=== PATIENT | female | born 1965 | race Caucasian/White ===

== ENCOUNTER → 2017-05-02 | Outpatient (CLI) | payer BC | END | disposition home or self-care (01) | LOC: C.PAPS 11:32 | PROVIDERS: ATTEND Obstetrics & Gynecology | DX: Z01.411 Encounter for gynecological examination (general) (routine) with abnormal findings (principal); R87.610 Atypical squamous cells of undetermined significance on cytologic smear of cervix (ASC-US) ==

== ENCOUNTER → 2017-05-07 | Outpatient (CLI) | payer BC ==
--- NOTE | 2017-05-08 14:36 | MAMMOGRAPHY REPORT ---
BILATERAL DIGITAL SCREENING MAMMOGRAM TOMOSYNTHESIS WITH CAD: 05/07/2017 CLINICAL HISTORY: Routine screening. TECHNIQUE: Breast tomosynthesis in addition to standard 2D mammography was performed. Current study was also evaluated with a Computer Aided Detection (CAD) system. COMPARISON: Comparison is made to exams dated: 05/03/2016 mammogram, 04/30/2015 mammogram, 03/20/2014 ma mmogram, 03/03/2013 mammogram, 01/01/2012 mammogram, and 01/12/2011 mammogram - [facility]. BREAST COMPOSITION: The tissue of both breasts is almost entirely fatty. FINDINGS: There are stable benign-appearing coarse calcifications in the right breast. No suspicious mass, architectural distortion or cluster of suspicious microcalcifications is seen. IMPRESSION: ACR BI-RADS CATEGORY 1: NEGATIVE There is no mammographic evidence of malignancy. A 1 year screening mammogram is recommended. The pa tient will receive written notification of the results. Approximately 10% of breast cancers are not detected with mammography. A negative mammographic report should not delay biopsy if a clinically suggestive mass is present. Brittney Brown M.D. ay/:05/07/2017 15:52:56 Learning Strategist: Ramona DUNCAN(Christopher)(Far[place]), [facility] letter sent: Normal 1/2 BI-RADS Code: ACR BI-RADS Category 1: Negative
== END | disposition home or self-care (01) ==
LOC: C.MAMM 09:08
PROVIDERS: ATTEND Obstetrics & Gynecology
DX: Z12.31 Encounter for screening mammogram for malignant neoplasm of breast (principal)

== ENCOUNTER → 2018-05-06 | Outpatient (CLI) | payer OTHER | END | disposition home or self-care (01) | LOC: C.PAPS 16:26 | PROVIDERS: ATTEND Obstetrics & Gynecology | DX: Z01.411 Encounter for gynecological examination (general) (routine) with abnormal findings (principal); Z11.51 Encounter for screening for human papillomavirus (HPV); R87.610 Atypical squamous cells of undetermined significance on cytologic smear of cervix (ASC-US) ==

== ENCOUNTER → 2018-05-09 | Outpatient (CLI) | payer OTHER ==
--- NOTE | 2018-05-09 15:42 | MAMMOGRAPHY REPORT ---
BILATERAL DIGITAL SCREENING MAMMOGRAM TOMOSYNTHESIS WITH CAD: 05/09/2018 CLINICAL HISTORY: Routine screening. TECHNIQUE: The study was acquired using full field digital technology and interpreted from soft copy. Breast tomosynthesis in addition to standard 2D mammography was performed. Current study was also ev aluated with a Computer Aided Detection (CAD) system. COMPARISON: Comparison is made to exams dated: 05/07/2017 mammogram, 05/03/2016 mammogram, 04/30/2015 ma mmogram, 03/20/2014 mammogram, 03/03/2013 mammogram, and 01/01/2012 mammogram - [facility]. BREAST COMPOSITION: The tissue of both breasts is almost entirely fatty. FINDINGS: No suspicious masses, calcifications, or areas of architectural distortion are noted in either breast . There has been no significant interval change compared to prior exams. IMPRESSION: ACR BI-RADS CATEGORY 1: NEGATIVE There is no mammographic evidence of malignancy. A 1 year screening mammogram is recommended.( 019) The patient will receive written notification of the results. Some breast cancers are not detected with mammography. A negative mammographic report should not dany y biopsy if a clinically suggestive mass is present. Sandra Abarca M.D. ah/:05/09/2018 14:50:16 Manager Environmental Health And Safety: RT Felix(Christopher)(M), [facility] letter sent: Normal 1/2 BI-RADS Code: ACR BI-RADS Category 1: Negative
== END | disposition home or self-care (01) ==
LOC: C.MAMM 08:51
PROVIDERS: ATTEND Obstetrics & Gynecology
DX: Z12.31 Encounter for screening mammogram for malignant neoplasm of breast (principal)

== ENCOUNTER 2023-03-26 18:08 | Observation (INO) ==
--- NOTE | 2023-03-26 18:20 | ED Triage Note ---
Date of Service March 26, 2023 History of Present Illness This patient was briefly evaluated while in triage. An abbreviated physical exam was performed. This patient is a 57-year-old Female who presents to the ED for evaluation of several complaints. Has had 2.5 weeks with dizziness--felt like was going to black out. Did stop at [facility], and was dx with Vertigo. Meclizine may have helped. Followed up again with [facility] for a PCP visit. Started on 6 day steroid taper that finished 2 days ago. Today with headache and vague facial numbness that was fleeting. Physical Exam Limited Triage Exam: VITALS: Vitals are noted on the nurse's note and reviewed by myself. Vital signs stable. GENERAL: Well-developed, well-nourished, white female, who is in no acute distress and resting comfortably. Patient is cooperative with the examination. HEART: Regular rate and rhythm without murmurs gallops or rubs. LUNGS: Clear to auscultation bilaterally without wheezes, rales or rhonchi. No retractions or accessory muscle use. NEURO: Patient was alert and oriented to person place and time. CN II through XII grossly intact. Initial orders for labs and / or imaging were placed and patient was placed in the waiting area until a bed is available. Please see further documentation for the full ED course.
[2023-03-26 19:07] LABS: Basophils # (auto) 0.06 K/uL (0-0.2); Basophils % (auto) 0.6 %; Eosinophils # (auto) 0.25 K/uL (0-0.50); Eosinophils % (auto) 2.4 %; Hematocrit (blood only) 44.8 % (37.0-47.0); Hemoglobin 15.5 g/dl (12.0-16.0); Immature Granulocytes # (auto) 0.07 K/uL (0.01-0.20); Immature Granulocytes % (auto) 0.7 %; Lymphocytes # (auto) 1.94 K/uL (1.2-3.4); Lymphocytes % (auto) 18.9 %; Mean Corpuscular Hgb Conc 34.6 g/dL (32.0-36.0); Mean Corpuscular Volume 86.8 fL (80.0-100.0); Mean Platelet Volume 9.6 fL (9.4-12.4); Monocytes # (auto) 0.66 K/uL (0.11-0.59); Monocytes % (auto) 6.4 %; Neutrophils # (auto) 7.29 K/uL (1.40-6.50); Platelet Count 315 K/uL (130-400); RDW Coefficient of Variation 12.6 % (11.5-14.5); RDW Standard Deviation 39.7 fL (36.4-46.3); Red Blood Count 5.16 M/uL (4.20-5.40); White Blood Count 10.27 K/ul (4.8-10.8)
--- NOTE | 2023-03-26 19:09 | Emergency Department Note ---
Impression & Plan Facial numbness, Left arm numbness, Aneurysm of carotid artery, Dizziness ED Provider Note NAME: BROOKS Khan LISA AGE: 57 SEX: F : 1965 ARRIVES VIA: Walk-In INFORMANT: [Patient] ED PROVIDER(S): [Sung Estrada MD] CHIEF COMPLAINT: Dizziness HISTORY OF PRESENT ILLNESS: The patient is a 57-year-old female who states that 3 weeks ago, she had a bout of dizziness and lightheadedness while driving. She thought she might pass out but did not. She states that she went then to urgent care and they told her that she had some fluid behind her ears. She was given meclizine which she thinks may have helped a bit. Patient saw her doctor's office a week ago for similar symptoms and was given a steroid taper. She just finished her steroid taper. She also is using a nasal spray. Patient states that today, about 4 PM, 3 hours ago, she suddenly had bilateral facial numbness and a little tingling in her left arm. Left arm tingling only lasted a few seconds. The facial numbness lasted about 45 minutes. The patient was slightly dizzy at the time and had a mild headache. There was no leg weakness, no speech issue, no trouble with concentration. No chest pain. Patient has no history of TIA or stroke. PMHx/PSHx: See Below SOCIAL HISTORY: See Below. PHYSICAL EXAM: GENERAL: Patient is in no acute distress. HEENT: No acute trauma, normocephalic atraumatic, mucous membranes moist, no nasal congestion. NECK: No stridor, no adenopathy, no meningismus, trachea is midline. LUNGS: Clear to auscultation bilaterally, no wheeze, no rhonchi, breath sounds equal. HEART: Without murmurs gallops or rubs, regular rate and rhythm. ABDOMEN: Soft, nontender, bowel sounds positive, no peritonitis. EXTREMITIES: No cyanosis or edema, full range of motion of all the joints without pain or difficulty, no signs for acute trauma. NEUROLOGIC: Oriented x 3, no acute motor or sensory deficits, no focal weakness. No speech slur or facial droop, no extremity drift. No cerebellar dysfunction. Excellent historian. SKIN: No rash, no jaundice, no diaphoresis. DIFFERENTIAL DIAGNOSIS: TIA, CVA, vertigo, dysrhythmia, electrolyte imbalance, renal failure, anemia, UTI, among others. EMERGENCY DEPARTMENT COURSE/PROCEDURES: Prior/Outside records reviewed: None. ECG per my interpretation: Indication was possible stroke. The ECG shows a normal sinus rhythm with a rate of 71. There is no ST elevation, no PVCs. The QTc is 373. Continuous Cardiac Monitoring per my interpretation: An order was placed for continuous cardiac monitoring. The monitor shows a rate of 95 with normal sinus rhythm. Critical Care Note: I have personally spent 48 minutes of critical care time in the direct management of this patient. This includes bedside care, interpretation of diagnostic studies, and testing, discussion with consultants, patient, and family members, and other required patient management activities. This 48 minutes is in excess of all separately billable procedures. MEDICAL DECISION MAKING: There is no leukocytosis or concerning anemia. There is a normal platelet count. No coagulopathy. No renal failure or significant electrolyte abnormality. No concerning liver enzyme elevation. The TSH was somewhat low however, the T4 was normal. ECG showed a normal sinus rhythm, no ischemia or dysrhythmia. Cardiac enzyme testing x1 was not consistent with acute cardiac injury. Urinalysis did not show findings of infection. Anaplasmosis and Babesia smears were negative. Lyme disease testing was negative. COVID test returned negative. Brain CT showed no acute bleed or mass effect. CT angio of the head and neck were performed. There was a potential 1.3 cm left carotid aneurysm, no stenosis or clot seen in the arteries of the head or neck. On exam, there were no focal neurologic findings. The patient did not require any medications while here in the ED, she was resting comfortably. Her symptoms had resolved. Given the facial numbness, given the left arm tingling, given the dizziness, I was concerned for the possibility of TIA or small stroke not seen on CT. I do think further testing/neurologic work-up is warranted. With regard to the potential left carotid artery aneurysm, this is likely an in cidental finding. She has no pain in her neck, there was no mention of arterial rupture. No stenosis or clot identified at this region. I did speak with case management, I spoke with the patient, the on-call hospitalist was consulted. DISPOSITION: Patient presentation and findings warrant a hospital stay. Past Med/Surg History Medical History Anxiety Depression GERD (gastroesophageal reflux disease) controlled History of endometriosis History of restrictive lung disease Pt denies (? haziness on report imaging r/t work exposure) Hypothyroidism Surgical History History of arthroscopic surgery of elbow Right History of carpal tunnel release Right History of hip surgery Left hip arthroscopy, labral repair (10/06/19): Grade view 2, MAC#3, ETT 7, atraumatic DL x1 at [facility]. No issues noted per post-op anesthesia progress note. Hx of foot surgery Right small toe S/P colonoscopy S/P cystoscopy S/P laparoscopy Family History Mother Malignant neoplasm of cervix Colon cancer Denies family history of Ovarian cancer Breast cancer Social History Smoking Status: Never smoker Second Hand Exposure: No; Do You Dip or Chew Tobacco: No; Hx Alcohol Use: No Hx Substance Use: No Preferred Language: Lao Communication Ability: Effective Warp Dresser Required: No Beliefs That Will Affect Care: None marital status: Current Living Situation: Spouse Other Information That Helps Us Care for You: No Feels Safe at Home: Yes Safety Concerns: Feels Safe At This Time Seatbelt Use: always Sunscreen Use: Yes Assistive Devices: None Allergies Allergies Allergy/AdvReac Type Severity Reaction Status Date / Time No Known Drug Allergies Allergy Unknown Verified 03/26/23 22:40 Home Meds Home Medications Medication Instructions Recorded Confirmed fluoxetine 20 mg capsule (Prozac) 20 mg PO QAM 09/12/19 03/26/23 omeprazole magnesium 20 mg 40 mg PO QAM 09/12/19 03/26/23 tablet,delayed release (Prilosec OTC) apple cider vinegar 500 mg tablet 500 mg PO QAM 05/18/22 03/26/23 cholecalciferol (vitamin D3) 50 50 mcg PO QAM 05/18/22 03/26/23 mcg (2,000 unit) tablet (Vitamin D3) cinnamon bark 500 mg capsule 500 mg PO QAM 05/18/22 03/26/23 (Cinnamon) cyanocobalamin (vitamin B-12) 100 100 mcg PO QAM 05/18/22 03/26/23 mcg tablet (Vitamin B-12) fexofenadine 60 mg tablet 60 mg PO BID PRN Allergy Symptoms 05/18/22 03/26/23 calcium carbonate 600 mg calcium 600 mg PO DAILY 03/26/23 03/26/23 (1,500 mg) tablet fluticasone propionate 50 2 spray intranasal DAILY 03/26/23 03/26/23 mcg/actuation nasal spray,suspension (Flonase Allergy Relief) levonorgestrel 21 mcg/24 hours (8 0 mcg intrauterine CONT 03/26/23 03/26/23 yrs) 52 mg intrauterine device (Mirena) levothyroxine 175 mcg tablet 175 mcg PO DAILYBB 03/26/23 03/26/23 Previous Rx's Medication Instructions Recorded spironolactone 50 mg tablet 50 mg PO DAILY #90 tabs 11/03/22 (Aldactone) Results & Data (ED) Vital Signs Vital Signs - 24 hr 03/26/23 18:17 03/26/23 19:32 03/26/23 21:06 Temperature 36.6 C Temperature Source Temporal Artery Scan Pulse Rate 96 H 77 Pulse Rate [Apical] 77 Respiratory Rate 20 16 Respiratory Effort / Characteristics Non-Labored Respiratory Depth Normal Blood Pressure 130/78 Blood Pressure [Right Arm] 123/73 Blood Pressure Mean 95 Blood Pressure Mean [Right Arm] 89 Pulse Oximetry 97 96 Oxygen Delivery Method Room Air Room Air Sepsis Recent Fever Within 48 Hours No Sepsis New/Unexplained Change in Mental Status No Sepsis Action Taken by Nursing No Action Required Home Medications Current Medication List: was personally reviewed by me Laboratory Data Attestation: I reviewed the patient's lab results. 03/26/23 18:32 03/26/23 18:32 Lab Results 03/26/23 03/26/23 03/26/23 Range/Units 18:32 18:32 18:32 WBC 10.27 (4.8-10.8) K/ul RBC 5.16 (4.20-5.40) M/uL Hgb 15.5 (12.0-16.0) g/dl Hct 44.8 (37.0-47.0) % MCV 86.8 (80.0-100.0) fL MCH 30.0 (25.0-34.0) pg MCHC 34.6 (32.0-36.0) g/dL RDW Std Deviation 39.7 (36.4-46.3) fL RDW Coeff of Angel 12.6 (11.5-14.5) % Plt Count 315 (130-400) K/uL MPV 9.6 (9.4-12.4) fL Immature Gran % (Auto) 0.7 % Neut % (Auto) 71.0 % Lymph % (Auto) 18.9 % [place] % (Auto) 6.4 % Eos % (Auto) 2.4 % Baso % (Auto) 0.6 % Neut # (Auto) 7.29 H (1.40-6.50) K/uL Lymph # (Auto) 1.94 (1.2-3.4) K/uL [place] # (Auto) 0.66 H (0.11-0.59) K/uL Eos # (Auto) 0.25 (0-0.50) K/uL Baso # (Auto) 0.06 (0-0.2) K/uL Immature Gran # (Auto) 0.07 (0.01-0.20) K/uL PT 10.8 (9.0-12.0) Seconds INR 1.0 (0.9-1.1) APTT 25.0 (21.0-31.0) Seconds PTT Ratio 0.9 Sodium 137 (136-145) mmol/L Potassium 4.1 (3.5-5.1) mmol/L Chloride 107 (98-107) mmol/L Carbon Dioxide 22 (21-32) mmol/L Anion Gap 8 (3-11) BUN 16 (6-23) mg/dl Creatinine 0.78 (0.6-1.2) mg/dl Est Cr Clr Drug Dosing Not Reportable Est GFR ( Amer) 99.2 ml/min Est GFR (Non-Af Amer) 85.6 ml/min BUN/Creatinine Ratio 20.5 H (10-20) Glucose 118 H (70-99(Fasting)) mg/dl Calcium 9.1 (8.6-10.3) mg/dl Magnesium 1.9 (1.7-2.4) mg/dl Total Bilirubin 0.3 (0.2-1.0) mg/dl AST 17 (13-39) U/L ALT 19 (7-52) U/L Alkaline Phosphatase 98 (34-104) U/L Troponin I High Sens 2.8 (0-14) pg/ml Total Protein 7.0 (6.0-8.3) gm/dl Albumin 4.3 (3.4-5.0) gm/dl Globulin 2.7 (2.5-4.0) gm/dl Albumin/Globulin Ratio 1.6 (0.9-2) TSH (0.300-4.500) uIu/ml Free T4 (0.61-1.60) ng/dl Urine Color Urine Appearance (Clear) Urine pH (4.5-7.5) Ur Specific [place] (1.000-1.030) Urine Protein (Negative) Urine Glucose (UA) (Negative) Urine Ketones (Negative) Urine Blood (Negative) Urine Nitrite (Negative) Urine Bilirubin (Negative) Urine Urobilinogen (Negative) Ur Leukocyte Esterase (Negative) Anaplasma Smear See Comment Lyme Disease IgG Ab (Negative) Lyme Disease IgM Ab (Negative) SARS-CoV-2, RNA, NAAT (NEGATIVE) 03/26/23 03/26/23 03/26/23 Range/Units 18:32 18:32 18:58 WBC (4.8-10.8) K/ul RBC (4.20-5.40) M/uL Hgb (12.0-16.0) g/dl Hct (37.0-47.0) % MCV (80.0-100.0) fL MCH (25.0-34.0) pg MCHC (32.0-36.0) g/dL RDW Std Deviation (36.4-46.3) fL RDW Coeff of Angel (11.5-14.5) % Plt Count (130-400) K/uL MPV (9.4-12.4) fL Immature Gran % (Auto) % Neut % (Auto) % Lymph % (Auto) % [place] % (Auto) % Eos % (Auto) % Baso % (Auto) % Neut # (Auto) (1.40-6.50) K/uL Lymph # (Auto) (1.2-3.4) K/uL [place] # (Auto) (0.11-0.59) K/uL Eos # (Auto) (0-0.50) K/uL Baso # (Auto) (0-0.2) K/uL Immature Gran # (Auto) (0.01-0.20) K/uL PT (9.0-12.0) Seconds INR (0.9-1.1) APTT (21.0-31.0) Seconds PTT Ratio Sodium (136-145) mmol/L Potassium (3.5-5.1) mmol/L Chloride (98-107) mmol/L Carbon Dioxide (21-32) mmol/L Anion Gap (3-11) BUN (6-23) mg/dl Creatinine (0.6-1.2) mg/dl Est Cr Clr Drug Dosing Est GFR ( Amer) ml/min Est GFR (Non-Af Amer) ml/min BUN/Creatinine Ratio (10-20) Glucose (70-99(Fasting)) mg/dl Calcium (8.6-10.3) mg/dl Magnesium (1.7-2.4) mg/dl Total Bilirubin (0.2-1.0) mg/dl AST (13-39) U/L ALT (7-52) U/L Alkaline Phosphatase (34-104) U/L Troponin I High Sens (0-14) pg/ml Total Protein (6.0-8.3) gm/dl Albumin (3.4-5.0) gm/dl Globulin (2.5-4.0) gm/dl Albumin/Globulin Ratio (0.9-2) TSH 0.111 L (0.300-4.500) uIu/ml Free T4 1.22 (0.61-1.60) ng/dl Urine Color Yellow Urine Appearance Clear (Clear) Urine pH 5.5 (4.5-7.5) Ur Specific [place] 1.005 (1.000-1.030) Urine Protein Negative (Negative) Urine Glucose (UA) Negative (Negative) Urine Ketones Negative (Negative) Urine Blood Negative (Negative) Urine Nitrite Negative (Negative) Urine Bilirubin Negative (Negative) Urine Urobilinogen Negative (Negative) Ur Leukocyte Esterase Negative (Negative) Anaplasma Smear Lyme Disease IgG Ab Negative (Negative) Lyme Disease IgM Ab Negative (Negative) SARS-CoV-2, RNA, NAAT (NEGATIVE) 03/26/23 Range/Units 21:40 WBC (4.8-10.8) K/ul RBC (4.20-5.40) M/uL Hgb (12.0-16.0) g/dl Hct (37.0-47.0) % MCV (80.0-100.0) fL MCH (25.0-34.0) pg MCHC (32.0-36.0) g/dL RDW Std Deviation (36.4-46.3) fL RDW Coeff of Angel (11.5-14.5) % Plt Count (130-400) K/uL MPV (9.4-12.4) fL Immature Gran % (Auto) % Neut % (Auto) % Lymph % (Auto) % [place] % (Auto) % Eos % (Auto) % Baso % (Auto) % Neut # (Auto) (1.40-6.50) K/uL Lymph # (Auto) (1.2-3.4) K/uL [place] # (Auto) (0.11-0.59) K/uL Eos # (Auto) (0-0.50) K/uL Baso # (Auto) (0-0.2) K/uL Immature Gran # (Auto) (0.01-0.20) K/uL PT (9.0-12.0) Seconds INR (0.9-1.1) APTT (21.0-31.0) Seconds PTT Ratio Sodium (136-145) mmol/L Potassium (3.5-5.1) mmol/L Chloride (98-107) mmol/L Carbon Dioxide (21-32) mmol/L Anion Gap (3-11) BUN (6-23) mg/dl Creatinine (0.6-1.2) mg/dl Est Cr Clr Drug Dosing Est GFR ( Amer) ml/min Est GFR (Non-Af Amer) ml/min BUN/Creatinine Ratio (10-20) Glucose (70-99(Fasting)) mg/dl Calcium (8.6-10.3) mg/dl Magnesium (1.7-2.4) mg/dl Total Bilirubin (0.2-1.0) mg/dl AST (13-39) U/L ALT (7-52) U/L Alkaline Phosphatase (34-104) U/L Troponin I High Sens (0-14) pg/ml Total Protein (6.0-8.3) gm/dl Albumin (3.4-5.0) gm/dl Globulin (2.5-4.0) gm/dl Albumin/Globulin Ratio (0.9-2) TSH (0.300-4.500) uIu/ml Free T4 (0.61-1.60) ng/dl Urine Color Urine Appearance (Clear) Urine pH (4.5-7.5) Ur Specific [place] (1.000-1.030) Urine Protein (Negative) Urine Glucose (UA) (Negative) Urine Ketones (Negative) Urine Blood (Negative) Urine Nitrite (Negative) Urine Bilirubin (Negative) Urine Urobilinogen (Negative) Ur Leukocyte Esterase (Negative) Anaplasma Smear Lyme Disease IgG Ab (Negative) Lyme Disease IgM Ab (Negative) SARS-CoV-2, RNA, NAAT NEGATIVE (NEGATIVE) Administered Medications Discontinued Medications Ioversol (Optiray 320 125ml) 120 ml IV ONCE ONE Stop: 03/26/23 20:47 Last Admin: 03/26/23 20:46 Dose: 120 ml Documented By: UTE Lorazepam (Lorazepam 2 Mg/1 Ml Vial) 0.5 mg IV NOW STA Stop: 03/26/23 23:08 Last Admin: 03/26/23 23:14 Dose: 0.5 mg Documented By: PHYLLIS Imaging Data Radiologist's Impression: Head CT 03/26/23 18:20 Exam(s): CT HEAD Without Contrast EXAM: CT Head Without Intravenous Contrast CLINICAL HISTORY: Reason for exam: vague neuro sx, headache. TECHNIQUE: Axial computed tomography images of the head/brain without intravenous contrast. CTDI is 38.03 mGy and DLP is 546.36 mGy-cm. Automated exposure control was utilized for the study. A dose lowering technique was utilized adhering to the principles of ALARA. COMPARISON: No relevant prior studies available. FINDINGS: Brain: Minimal periventricular white matter changes, likely related to microangiopathy. No hemorrhage. Ventricles: Unremarkable. No ventriculomegaly. Bones/joints: Unremarkable. No acute fracture. Soft tissues: Unremarkable. Sinuses: Unremarkable as visualized. No acute sinusitis. Mastoid air cells: Unremarkable as visualized. No mastoid effusion. IMPRESSION: Minimal periventricular white matter changes, likely related to microangiopathy. Electronically signed by: Nitin Hayden M.D. 03/26/23 21:07 PM Head CTA 03/26/23 18:20 Exam(s): CTA HEAD With Contrast IV Amt: 120 ml optiray 320 EXAM: CT Angiography Head With Intravenous Contrast CLINICAL HISTORY: Reason for exam: vague neuro sx, headache. TECHNIQUE: Axial computed tomographic angiography images of the head with intravenous contrast. CTDI is 38.03 mGy and DLP is 546.36 mGy-cm. Automated exposure control was utilized for the study. A dose lowering technique was utilized adhering to the principles of ALARA. MIP reconstructed images were created and reviewed. CONTRAST: Patient received 120 ml optiray 320 of IV contrast COMPARISON: No relevant prior studies available. FINDINGS: Right internal carotid artery: No acute findings. Intracranial segment is patent with no significant stenosis. No aneurysm. Right anterior cerebral artery: Unremarkable. No occlusion or significant stenosis. No aneurysm. Right middle cerebral artery: Unremarkable. No occlusion or significant stenosis. No aneurysm. Right posterior cerebral artery: Unremarkable. No occlusion or significant stenosis. No aneurysm. Right vertebral artery: Unremarkable as visualized. Left internal carotid artery: Possible 1.3 cm saccular aneurysm arising off the clinoid portion of the left internal carotid artery best seen on series 5 image 100. Intracranial segment is patent with no significant stenosis. Left anterior cerebral artery: Unremarkable. No occlusion or significant stenosis. No aneurysm. Left middle cerebral artery: Unremarkable. No occlusion or significant stenosis. No aneurysm. Left posterior cerebral artery: Unremarkable. No occlusion or significant stenosis. No aneurysm. Left vertebral artery: Unremarkable as visualized. Basilar artery: Unremarkable. No occlusion or significant stenosis. No aneurysm. IMPRESSION: Possible 1.3 cm saccular aneurysm arising off the clinoid portion of the left internal carotid artery. Electronically signed by: Nitin Hayden M.D. 03/26/23 21:17 PM Neck CTA 03/26/23 18:20 Exam(s): CTA NECK With Contrast IV Amt: 120 ml optiray 320 EXAM: CT Angiography Neck With Intravenous Contrast CLINICAL HISTORY: Reason for exam: vague neuro sx, headache. TECHNIQUE: Routine carotid CT angiography protocol was performed with intravenous contrast. NASCET criteria using the distal ICAs for comparison were used for evaluation of stenoses. CTDI is 12.13 mGy and DLP is 452.33 mGy-cm. Automated exposure control was utilized for the study. A dose lowering technique was utilized adhering to the principles of ALARA. MIP reconstructed images were created and reviewed. CONTRAST: Patient received 120 ml optiray 320 of IV contrast COMPARISON: None. FINDINGS: VASCULATURE: Right common carotid artery: Unremarkable. No occlusion or significant stenosis. No dissection. Right internal carotid artery: Unremarkable. Extracranial segment is patent with no occlusion or significant stenosis. No dissection. Right external carotid artery: Unremarkable. No occlusion. Right vertebral artery: Unremarkable. No occlusion or significant stenosis. No dissection. Left common carotid artery: Unremarkable. No occlusion or significant stenosis. No dissection. Left internal carotid artery: Unremarkable. Extracranial segment is patent with no occlusion or significant stenosis. No dissection. Left external carotid artery: Unremarkable. No occlusion. Left vertebral artery: Unremarkable. No occlusion or significant stenosis. No dissection. NECK: Bones/joints: Unremarkable. Soft tissues: Unremarkable. Lung apices: Clear. CAROTID STENOSIS REFERENCE USING NASCET CRITERIA: % ICA stenosis = (1 - narrowest ICA diameter/diameter of distal cervical ICA) x 100. Mild - <50% stenosis. Moderate - 50-69% stenosis. Severe - 70-94% stenosis. Near occlusion - 95-99% stenosis. Occluded - 100% stenosis. IMPRESSION: Negative CTA neck. Electronically signed by: Nitin Hayden M.D. 03/26/23 21:10 PM Brain MRI 03/26/23 22:10 Exam(s): MRI HEAD Without Contrast EXAM: MR Head Without Intravenous Contrast CLINICAL HISTORY: Reason for exam: facial numbness aneurysm. TECHNIQUE: Magnetic resonance images of the head/brain without intravenous contrast in multiple planes. COMPARISON: Head CT of 03/26/2023 FINDINGS: Brain: Mild periventricular white matter changes, likely related to chronic microangiopathy. No hemorrhage. No acute infarct. Ventricles: Unremarkable. No ventriculomegaly. Bones/joints: Unremarkable. Sinuses: Unremarkable as visualized. No acute sinusitis. Mastoid air cells: Unremarkable as visualized. No mastoid effusion. Orbits: Unremarkable as visualized. IMPRESSION: Mild periventricular white matter changes, likely related to chronic microangiopathy. Electronically signed by: Nitin Hayden M.D. 03/27/23 01:17 AM Head MRA 03/26/23 22:10 Exam(s): MRA HEAD Without Contrast EXAM: MR Angiography Head Without Intravenous Contrast CLINICAL HISTORY: Reason for exam: facial numbness aneurysm. TECHNIQUE: Magnetic resonance angiography images of the head without intravenous contrast. 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 This is favored to be artifactual as this measured 4.4 mm on prior CTA which is more accurate. Intracranial segment is patent with no significant stenosis. Right anterior cerebral artery: Unremarkable. No occlusion or significant stenosis. No aneurysm. Right middle cerebral artery: Unremarkable. No occlusion or significant stenosis. No aneurysm. Right posterior cerebral artery: Unremarkable. No occlusion or significant stenosis. No aneurysm. Right vertebral artery: Unremarkable as visualized. Left internal carotid artery: Small saccular aneurysm seen on prior CTA within the distal left internal carotid artery is not visualized on the MRA. Intracranial segment is patent with no significant stenosis. Left anterior cerebral artery: Unremarkable. No occlusion or significant stenosis. No aneurysm. Left middle cerebral artery: Unremarkable. No occlusion or significant stenosis. No aneurysm. Left posterior cerebral artery: Unremarkable. No occlusion or significant stenosis. No aneurysm. Left vertebral artery: Unremarkable as visualized. Basilar artery: Unremarkable. No occlusion or significant stenosis. No aneurysm. IMPRESSION: Small saccular aneurysm seen on prior CTA within the distal left internal carotid artery is not visualized on the MRA. Electronically signed by: Nitin Hayden M.D. 03/27/23 01:01 AM Discharge Plan Visit Data Chief Complaint: Dizziness Stated Complaint: DIZZINESS FOR 3 WKS, NUMBNESS IN FACE ED Provider: Sung Estrada Discharge Problem: Facial numbness, Left arm numbness, Aneurysm of carotid artery, Dizziness Patient Disposition: Admitted As Inpatient Condition: Fair Discharge Instructions Interventions: ED Discharge Assessment Last Done: 03/26/23 23:47
[2023-03-26 19:23] LABS: Alanine Aminotransferase 19 U/L (7-52); Albumin Globulin Ratio 1.6 (0.9-2); Albumin Level 4.3 gm/dl (3.4-5.0); Alkaline Phosphatase 98 U/L (34-104); Anion Gap 8 (3-11); Aspartate Aminotransferase 17 U/L (13-39); BUN Creatinine Ratio 20.5 (10-20); Bilirubin,Total 0.3 mg/dl (0.2-1.0); Blood Urea Nitrogen 16 mg/dl (6-23); Calcium 9.1 mg/dl (8.6-10.3); Carbon Dioxide 22 mmol/L (21-32); Chloride 107 mmol/L (98-107); Est GFR (African American) 99.2 ml/min; Est GFR (Non-African American) 85.6 ml/min; Globulin 2.7 gm/dl (2.5-4.0); Glucose 118 mg/dl (70-99(Fasting)); Magnesium 1.9 mg/dl (1.7-2.4); Potassium 4.1 mmol/L (3.5-5.1); Sodium 137 mmol/L (136-145)
[2023-03-26 19:30] LABS: Troponin I High Sensitivity 2.8 pg/ml (0-14)
[2023-03-26 19:34] LABS: Appearance Urine Clear (Clear); Bilirubin Urine Negative (Negative); Blood Urine Negative (Negative); Color Urine Yellow; Glucose Urine UA Negative (Negative); Ketones Urine Negative (Negative); Leukocyte Esterase Urine Negative (Negative); Nitrite Urine Negative (Negative); Protein Urine Negative (Negative); Specific Gravity Urine 1.005 (1.000-1.030); Urobilinogen Urine Negative (Negative); pH Urine 5.5 (4.5-7.5)
[2023-03-26 19:41] LABS: Partial Thromboplastin Ratio 0.9; Prothrombin Time 10.8 Seconds (9.0-12.0)
[2023-03-26 19:51] LABS: Lyme Ab IgG w/WB Rflx Negative (Negative); Lyme Ab IgM w/WB Rflx Negative (Negative)
[2023-03-26 19:58] LABS: Thyroid Stimulating Hormone 0.111 uIu/ml (0.300-4.500)
[2023-03-26 20:42] LABS: T4 Free Thyroxine 1.22 ng/dl (0.61-1.60)
[2023-03-26] MEDS ORDERED: OPTIRAY 320 125ml IV ONE (20:46)
--- NOTE | 2023-03-26 21:08 | CT Scan Report ---
Exam(s): CT HEAD Without Contrast EXAM: CT Head Without Intravenous Contrast CLINICAL HISTORY: Reason for exam: vague neuro sx, headache. TECHNIQUE: Axial computed tomography images of the head/brain without intravenous contrast. CTDI is 38.03 mGy and DLP is 546.36 mGy-cm. Automated exposure control was utilized for the study. A dose lowering technique was utilized adhering to the principles of ALARA. COMPARISON: No relevant prior studies available. FINDINGS: Brain: Minimal periventricular white matter changes, likely related to microangiopathy. No hemorrhage. Ventricles: Unremarkable. No ventriculomegaly. Bones/joints: Unremarkable. No acute fracture. Soft tissues: Unremarkable. Sinuses: Unremarkable as visualized. No acute sinusitis. Mastoid air cells: Unremarkable as visualized. No mastoid effusion. IMPRESSION: Minimal periventricular white matter changes, likely related to microangiopathy. Electronically signed by: Nitin Hayden M.D. 03/26/23 21:07 PM
--- NOTE | 2023-03-26 21:11 | CT Scan Report ---
Exam(s): CTA NECK With Contrast IV Amt: 120 ml optiray 320 EXAM: CT Angiography Neck With Intravenous Contrast CLINICAL HISTORY: Reason for exam: vague neuro sx, headache. TECHNIQUE: Routine carotid CT angiography protocol was performed with intravenous contrast. NASCET criteria using the distal ICAs for comparison were used for evaluation of stenoses. CTDI is 12.13 mGy and DLP is 452.33 mGy-cm. Automated exposure control was utilized for the study. A dose lowering technique was utilized adhering to the principles of ALARA. MIP reconstructed images were created and reviewed. CONTRAST: Patient received 120 ml optiray 320 of IV contrast COMPARISON: None. FINDINGS: VASCULATURE: Right common carotid artery: Unremarkable. No occlusion or significant stenosis. No dissection. Right internal carotid artery: Unremarkable. Extracranial segment is patent with no occlusion or significant stenosis. No dissection. Right external carotid artery: Unremarkable. No occlusion. Right vertebral artery: Unremarkable. No occlusion or significant stenosis. No dissection. Left common carotid artery: Unremarkable. No occlusion or significant stenosis. No dissection. Left internal carotid artery: Unremarkable. Extracranial segment is patent with no occlusion or significant stenosis. No dissection. Left external carotid artery: Unremarkable. No occlusion. Left vertebral artery: Unremarkable. No occlusion or significant stenosis. No dissection. NECK: Bones/joints: Unremarkable. Soft tissues: Unremarkable. Lung apices: Clear. CAROTID STENOSIS REFERENCE USING NASCET CRITERIA: % ICA stenosis = (1 - narrowest ICA diameter/diameter of distal cervical ICA) x 100. Mild - <50% stenosis. Moderate - 50-69% stenosis. Severe - 70-94% stenosis. Near occlusion - 95-99% stenosis. Occluded - 100% stenosis. IMPRESSION: Negative CTA neck. Electronically signed by: Nitin Hayden M.D. 03/26/23 21:10 PM
--- NOTE | 2023-03-26 21:18 | CT Scan Report ---
Exam(s): CTA HEAD With Contrast IV Amt: 120 ml optiray 320 EXAM: CT Angiography Head With Intravenous Contrast CLINICAL HISTORY: Reason for exam: vague neuro sx, headache. TECHNIQUE: Axial computed tomographic angiography images of the head with intravenous contrast. CTDI is 38.03 mGy and DLP is 546.36 mGy-cm. Automated exposure control was utilized for the study. A dose lowering technique was utilized adhering to the principles of ALARA. MIP reconstructed images were created and reviewed. CONTRAST: Patient received 120 ml optiray 320 of IV contrast COMPARISON: No relevant prior studies available. FINDINGS: Right internal carotid artery: No acute findings. Intracranial segment is patent with no significant stenosis. No aneurysm. Right anterior cerebral artery: Unremarkable. No occlusion or significant stenosis. No aneurysm. Right middle cerebral artery: Unremarkable. No occlusion or significant stenosis. No aneurysm. Right posterior cerebral artery: Unremarkable. No occlusion or significant stenosis. No aneurysm. Right vertebral artery: Unremarkable as visualized. Left internal carotid artery: Possible 1.3 cm saccular aneurysm arising off the clinoid portion of the left internal carotid artery best seen on series 5 image 100. Intracranial segment is patent with no significant stenosis. Left anterior cerebral artery: Unremarkable. No occlusion or significant stenosis. No aneurysm. Left middle cerebral artery: Unremarkable. No occlusion or significant stenosis. No aneurysm. Left posterior cerebral artery: Unremarkable. No occlusion or significant stenosis. No aneurysm. Left vertebral artery: Unremarkable as visualized. Basilar artery: Unremarkable. No occlusion or significant stenosis. No aneurysm. IMPRESSION: Possible 1.3 cm saccular aneurysm arising off the clinoid portion of the left internal carotid artery. Electronically signed by: Nitin Hayden M.D. 03/26/23 21:17 PM
--- NOTE | 2023-03-26 22:16 | History & Physical Report ---
Date of Service March 26, 2023 Assessment & Plan (1) Facial numbness: Plan: 57yo Female with PMH hypothyroidism, GERD, depression here for dizziness facial numbness. Facial Numbness -BP wnl, symptoms resolved at this time, normal neuro exam -CTA head neck:Possible 1.3 cm saccular aneurysm arising off the clinoid portion of the left internal carotid artery. -lyme negative anaplasmosis pending -ordered MRA head MRI brain no contrast -admit to med tele -consult placed to neurology GERD -continue protonix Hypothyroidism -continue levothyroxine Depression -continue fluoxetine *spironolactone placed on hold FENa: regular Code Status: Full DVT PPX: ambulatory Dispo: med/tele Janis Wesley D.O. PGY 3, FCM (2) Dizziness: (3) Aneurysm: (4) Hypothyroidism: (5) Depression: (6) GERD (gastroesophageal reflux disease): History of Present Illness Chief Complaint: Facial Numbness Primary Care Provider: Alden Rayo MD 57yo Female with PMH hypothyroidism, GERD, depression here for dizziness facial numbness. Patient states she's been having ongoing dizziness with movement ongoing past 3 weeks, ears felt heavy, PCP had noted fluid in her ears tried meclizine steroids vestibular therapy which only partially helped however dizziness would persist. Today at 4pm she noted sudden onset numbness on bilateral face both cheeks and chin sparing her forehead. described brief tingling along her left arm that quickly resolved. Possible sluggishness. Denies any change in hearing vision speech breathing facial expression weakness. Cannot recall any inciting event. States the numbness quickly resolved, has some lingering rubberiness on her lips. This has never happened before. Denies fever nausea vomitting SOB. Patient has a family history heart disease grandma age 91, cancer mother age 72. Allergies Allergy/AdvReac Type Severity Reaction Status Date / Time No Known Drug Allergies Allergy Unknown Verified 03/26/23 22:40 Home Medications Medication Instructions Recorded Confirmed Type fluoxetine 20 mg capsule (Prozac) 20 mg PO QAM 09/12/19 03/26/23 History omeprazole magnesium 20 mg 40 mg PO QAM 09/12/19 03/26/23 History tablet,delayed release (Prilosec OTC) apple cider vinegar 500 mg tablet 500 mg PO QAM 05/18/22 03/26/23 History cholecalciferol (vitamin D3) 50 50 mcg PO QAM 05/18/22 03/26/23 History mcg (2,000 unit) tablet (Vitamin D3) cinnamon bark 500 mg capsule 500 mg PO QAM 05/18/22 03/26/23 History (Cinnamon) cyanocobalamin (vitamin B-12) 100 100 mcg PO QAM 05/18/22 03/26/23 History mcg tablet (Vitamin B-12) fexofenadine 60 mg tablet 60 mg PO BID PRN Allergy Symptoms 05/18/22 03/26/23 History spironolactone 50 mg tablet 50 mg PO DAILY #90 tabs 11/03/22 03/26/23 Rx (Aldactone) calcium carbonate 600 mg calcium 600 mg PO DAILY 03/26/23 03/26/23 History (1,500 mg) tablet fluticasone propionate 50 2 spray intranasal DAILY 03/26/23 03/26/23 History mcg/actuation nasal spray,suspension (Flonase Allergy Relief) levonorgestrel 21 mcg/24 hours (8 0 mcg intrauterine CONT 03/26/23 03/26/23 History yrs) 52 mg intrauterine device (Mirena) aspirin 81 mg capsule 81 mg PO DAILY #30 caps 03/27/23 Rx levothyroxine 150 mcg tablet 150 mcg PO DAILYBB #30 tabs 03/27/23 Rx (Synthroid) Past Med/Surg History Medical History Anxiety Depression GERD (gastroesophageal reflux disease) controlled History of endometriosis History of restrictive lung disease Pt denies (? haziness on report imaging r/t work exposure) Hypothyroidism Surgical History History of arthroscopic surgery of elbow Right History of carpal tunnel release Right History of hip surgery Left hip arthroscopy, labral repair (10/06/19): Grade view 2, MAC#3, ETT 7, atraumatic DL x1 at [facility]. No issues noted per post-op anesthesia progress note. Hx of foot surgery Right small toe S/P colonoscopy S/P cystoscopy S/P laparoscopy Family History Mother Malignant neoplasm of cervix Colon cancer Denies family history of Ovarian cancer Breast cancer Social History Smoking Status: Never smoker Second Hand Exposure: No; Do You Dip or Chew Tobacco: No; Hx Alcohol Use: No Hx Substance Use: No Preferred Language: Upper Sorbian Communication Ability: Effective Supervisor Type Disk Quality Control Required: No Beliefs That Will Affect Care: None marital status: Current Living Situation: Spouse Feels Safe at Home: Yes Seatbelt Use: always Sunscreen Use: Yes Assistive Devices: None Physical Exam Constitutional: WD/WN, vitals as above Eyes: PERRL, conjunctivae normal, anicteric sclerae ENMT: external ear and nose normal, oropharynx normal Neck: trachea midline, no thyromegaly Respiratory: normal respiratory effort, lungs clear to auscultation Cardiovascular: Rate/Rhythm: regular rate and regular rhythm Extremities: no edema Skin: no rashes, warm and dry Neurologic: normal touch/pain/proprioception, CN's II-XI intact bilaterally and moves all extremities Results & Data Results & Data Vital Signs (Past 12 Hours) Vital Signs Temp Pulse Pulse Resp BP BP Pulse Ox 03/26/23 21:06 77 16 123/73 96 03/26/23 19:32 77 03/26/23 18:17 36.6 C 96 H 20 130/78 97 O2 Del Method 03/26/23 21:06 Room Air 03/26/23 19:32 03/26/23 18:17 Room Air Supervising Physician Co-Signing Physician Notes Attending addendum: I have physically seen this patient, have supervised the medical residents activities, and agree with the H&P unless as otherwise noted. Assessment and Plan: Facial numbness- Resolved spontaneously CT head negative, CTA head negative, CTA neck with possible 1.3 cm saccular aneurysm arising off the glenoid portion of the left ICA Lyme test is negative Anaplasmosis smear is negative for antibodies pending Order MRI of brain without contrast Order MRA head without contrast to further assess possible aneurysm Admit to med telemetry Hypercoagulable work-up GERD- Continue pantoprazole Hypothyroidism- Continue levothyroxine Depression- Continue fluoxetine Remaining orders and notations as noted Resident Activity Tracking Resident Involvement: Resident Care Provided Care Provided: Adult [facility]
[2023-03-26] MEDS ORDERED: LORazepam 2 MG/1 ML VIAL IV STA (23:07)
[2023-03-27] MEDS ORDERED: ACETAMINOPHEN 325 MG TAB PO PRN (00:35)
[2023-03-27] MEDS ORDERED: POLYETHYLENE (MIRALAX) 17 GM PACK PO PRN (00:35)
[2023-03-27] MEDS ORDERED: ONDANSETRON INJ 2 MG/ML 2 ML VIAL IV PRN (00:35)
--- NOTE | 2023-03-27 01:02 | Magnetic Resonance Report ---
Exam(s): MRA HEAD Without Contrast EXAM: MR Angiography Head Without Intravenous Contrast CLINICAL HISTORY: Reason for exam: facial numbness aneurysm. TECHNIQUE: Magnetic resonance angiography images of the head without intravenous contrast. 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 This is favored to be artifactual as this measured 4.4 mm on prior CTA which is more accurate. Intracranial segment is patent with no significant stenosis. Right anterior cerebral artery: Unremarkable. No occlusion or significant stenosis. No aneurysm. Right middle cerebral artery: Unremarkable. No occlusion or significant stenosis. No aneurysm. Right posterior cerebral artery: Unremarkable. No occlusion or significant stenosis. No aneurysm. Right vertebral artery: Unremarkable as visualized. Left internal carotid artery: Small saccular aneurysm seen on prior CTA within the distal left internal carotid artery is not visualized on the MRA. Intracranial segment is patent with no significant stenosis. Left anterior cerebral artery: Unremarkable. No occlusion or significant stenosis. No aneurysm. Left middle cerebral artery: Unremarkable. No occlusion or significant stenosis. No aneurysm. Left posterior cerebral artery: Unremarkable. No occlusion or significant stenosis. No aneurysm. Left vertebral artery: Unremarkable as visualized. Basilar artery: Unremarkable. No occlusion or significant stenosis. No aneurysm. IMPRESSION: Small saccular aneurysm seen on prior CTA within the distal left internal carotid artery is not visualized on the MRA. Electronically signed by: Nitin Hayden M.D. 03/27/23 01:01 AM
--- NOTE | 2023-03-27 01:18 | Magnetic Resonance Report ---
Exam(s): MRI HEAD Without Contrast EXAM: MR Head Without Intravenous Contrast CLINICAL HISTORY: Reason for exam: facial numbness aneurysm. TECHNIQUE: Magnetic resonance images of the head/brain without intravenous contrast in multiple planes. COMPARISON: Head CT of 03/26/2023 FINDINGS: Brain: Mild periventricular white matter changes, likely related to chronic microangiopathy. No hemorrhage. No acute infarct. Ventricles: Unremarkable. No ventriculomegaly. Bones/joints: Unremarkable. Sinuses: Unremarkable as visualized. No acute sinusitis. Mastoid air cells: Unremarkable as visualized. No mastoid effusion. Orbits: Unremarkable as visualized. IMPRESSION: Mild periventricular white matter changes, likely related to chronic microangiopathy. Electronically signed by: Nitin Hayden M.D. 03/27/23 01:17 AM
[2023-03-27] MEDS ORDERED: LEVOTHYROXINE SODIUM 150 MCG TABLET PO SCH (06:30)
--- NOTE | 2023-03-27 08:52 | Neurology Consultation ---
Date of Consultation March 27, 2023 Assessment & Plan (1) Facial numbness: (2) Dizziness: (3) Chronic cerebral ischemia: Plan patient had an episode March 26 of bilateral lower facial numbness with a very brief dysesthesias for seconds in the left upper extremity only. Although there was a very mild headache prior to the event, there was no headache during or after. Laboratory and imaging testing has been unremarkable except for mild nonspecific old small vessel ischemic change. there was no stroke. She does not significant stroke risk factors present in her history. There was a concern of an aneurysm distally in the left internal carotid artery but this has been proven to be not present by further imaging. I reviewed the CT angiography and MR angiography films with Dr. Lew and no aneurysm is present. Patient has had some nonspecific lightheadedness / wooziness which could be vertiginous in nature. A mild inner ear issue is possible but no other abnormalities have been found. The episode of bilateral facial numbness is not consistent with a TIA But may be more nonspecific vascular (vasospasm). Recommendations: 1. In lieu of the small vessel ischemic disease, I recommend 81 mg aspirin tablet daily. 2. I see no need for additional neurologic testing or treatment at this time. 3. I can follow as an outpatient if desired ( 3-4 weeks with PA ) Overall, I spent a total of 90 minutes with this case including review of records, review of MRI and CT films with Radiology, report generation, direct evaluation the patient at bedside, and discussion of the case with the patient and RN at bedside, and Dr. Snyder including differential diagnosis and treatment options. History of Present Illness Reason for Consultation: Patient is a 57-year-old, was asked to see at the request of Dr. Wesley, for neurologic consultation regarding possible aneurysm and other issues Requesting Physician: Dr. Wesley Attending Physician: Sadi Beasley DO History of Present Illness this patient has a history of hypothyroidism on levothyroxine, anxiety depression and is post left total hip replacement in May of 2022. She has no history of migraines. There is no history of hypertension, diabetes, dyslipidemia, or cigarette smoking , but he does have a history of a "leaky valve" She was doing well with no real issues until about 3 weeks ago she had the onset of lightheadedness/ wooziness while driving. There was no nausea vomiting, confusion, or headache. the worst of it lasted about 15-20 minutes and then resolve. She would have episodes that would come and go ever since. These would last couple of minutes possibly triggered by position change (but she was not sure ). Meclizine seemed to help some. About a week ago she had a more intense episode and her PCP gave her a steroid burst. This helped also on till March 26. March 26 she claims that she felt "off". She had a mild nonspecific dull bifrontal headache. She was in the kitchen and around 330-4 o'clock in the afternoon she had the onset of bilateral facial numbness including the cheeks and jawline and around her lips. It did not involve her forehead. For couple of seconds she had some tingling in the left upper extremity and then that was gone. Her legs felt a little bit heavy issue but had no numbness, weakness, or pain. The arms were asymptomatic otherwise also. She had a little bit of wooziness but no speech or mentation issues. The headache that was present resolved during the time of the numbness and never returned. The facial numbness lasted about 30-45 minutes and then resolved. It is not returned. She arrived to the emergency room March 26 at 6:17 p.m., with a temperature of 36.6, pulse 96, respiratory rate 20, blood pressure 130/78, and O2 saturation 97%. Neurologic examination was unremarkable / normal. CBC and Chem profile were normal. Glucose was 115. TSH was 0.1 and T4 was 1.2. Lyme antibody titers were negative and urinalysis was negative. CT scan of the head showed no acute findings and there may have been some old small vessel ischemic changes. CT angiography of the neck was unremarkable. CT angiography of the head was read as a possible "1.3 cm saccular aneurysm in the clinoid portion of the left internal carotid artery". MRI of the brain showed no acute stroke but there was some mild cold, nonspecific small vessel ischemic changes. MR angiography of the head revealed no aneurysm or vascular abnormality. This morning the patient is back to baseline without symptoms. Allergies Allergy/AdvReac Type Severity Reaction Status Date / Time No Known Drug Allergies Allergy Unknown Verified 03/26/23 22:40 Home Medications Medication Instructions Recorded Confirmed Type fluoxetine 20 mg capsule (Prozac) 20 mg PO QAM 09/12/19 03/26/23 History omeprazole magnesium 20 mg 40 mg PO QAM 09/12/19 03/26/23 History tablet,delayed release (Prilosec OTC) apple cider vinegar 500 mg tablet 500 mg PO QAM 05/18/22 03/26/23 History cholecalciferol (vitamin D3) 50 50 mcg PO QAM 05/18/22 03/26/23 History mcg (2,000 unit) tablet (Vitamin D3) cinnamon bark 500 mg capsule 500 mg PO QAM 05/18/22 03/26/23 History (Cinnamon) cyanocobalamin (vitamin B-12) 100 100 mcg PO QAM 05/18/22 03/26/23 History mcg tablet (Vitamin B-12) fexofenadine 60 mg tablet 60 mg PO BID PRN Allergy Symptoms 05/18/22 03/26/23 History spironolactone 50 mg tablet 50 mg PO DAILY #90 tabs 11/03/22 03/26/23 Rx (Aldactone) calcium carbonate 600 mg calcium 600 mg PO DAILY 03/26/23 03/26/23 History (1,500 mg) tablet fluticasone propionate 50 2 spray intranasal DAILY 03/26/23 03/26/23 History mcg/actuation nasal spray,suspension (Flonase Allergy Relief) levonorgestrel 21 mcg/24 hours (8 0 mcg intrauterine CONT 03/26/23 03/26/23 History yrs) 52 mg intrauterine device (Mirena) levothyroxine 175 mcg tablet 175 mcg PO DAILYBB 03/26/23 03/26/23 History Patient History Medical History Anxiety Depression GERD (gastroesophageal reflux disease) controlled History of endometriosis History of restrictive lung disease Pt denies (? haziness on report imaging r/t work exposure) Hypothyroidism Surgical History History of arthroscopic surgery of elbow Right History of carpal tunnel release Right History of hip surgery Left hip arthroscopy, labral repair (10/06/19): Grade view 2, MAC#3, ETT 7, atraumatic DL x1 at [facility]. No issues noted per post-op anesthesia progress note. Hx of foot surgery Right small toe S/P colonoscopy S/P cystoscopy S/P laparoscopy Family History Mother Malignant neoplasm of cervix Colon cancer Denies family history of Ovarian cancer Breast cancer Social History Smoking Status: Never smoker Second Hand Exposure: No; Do You Dip or Chew Tobacco: No; Hx Alcohol Use: No Hx Substance Use: No Preferred Language: Belgian Communication Ability: Effective Supervisor Fleshing Required: No Beliefs That Will Affect Care: None marital status: Current Living Situation: Spouse Other Information That Helps Us Care for You: No Feels Safe at Home: Yes Safety Concerns: Feels Safe At This Time Seatbelt Use: always Sunscreen Use: Yes Assistive Devices: None Review of Systems Constitutional: no fever, no fatigue and no weakness Eyes: no diplopia, no eye pain and no worsening vision Ear, Nose, Mouth, Throat: no ear pain, no tinnitus, no hearing loss, no dizziness, no snoring, no hoarseness and no dysphagia Respiratory: no cough and no dyspnea Cardiovascular: no chest pain, no palpitations and no lightheadedness Gastrointestinal: no abdominal pain, no nausea and no vomiting Genitourinary: no dysuria, no urinary frequency and no urinary incontinence Musculoskeletal: no back pain, no neck pain, no radicular pain, no joint pain and no myalgia Integumentary: no rash and no lesions Neurologic: no gait abnormality, no localized weakness, no generalized weakness, no tingling, no numbness, no tremor(s), no abnormal movements, no headache(s), no abnormal speech, no confusion and no memory loss Psychiatric: no depression, no irritability, no anxiety, no difficulty concentrating, no confusion and no hallucinations Endocrine: no fatigue and no flushing Hematologic / Lymphatic: no easy bleeding and no easy bruising Allergy / Immunological: no urticaria and no problem reported Exam (Neuro) Physical Exam: The patient is right-handed. The patient is awake, alert, and attentive. Speech is normal without any aphasia or dysarthria. The patient can name objects, repeat phrases, and has normal spontaneous speech. Mentation and thought processes are intact, with orientation to person, place and time, and normal fund of knowledge. Attention and concentration are normal. Mood and affect are normal and appropriate. General appearance and grooming are normal. Short and long-term memory are intact. Pupils are 4 mm bilaterally and reactive to light. Extraocular eye muscles are intact without nystagmus. Visual acuity and visual salcido seem normal grossly to confrontation. There are no deficits to sensation in the face in all 3 distributions of the fifth cranial nerve bilaterally. Corneal reflexes are positive bilaterally. Facial strength and symmetry was normal bilaterally. Hearing seems normal bilaterally. Palate moves well without asymmetry. There is normal sternocleidomastoid and trapezius (shoulder shrug) strength bilaterally. Tongue is midline with good strength bilaterally. Neck has a full range of motion without discomfort. There are no cervical bruits bilaterally. There are no cranial or ocular bruits. Cervical, thoracic, and lumbar spine are nontender to palpation. Gait is narrow based, with good arm swing, turns, and stance. Balance is normal eyes open or closed. With outstretched arms there is no drift. There are no resting, postural, or action tremors. There is no ataxia with finger to nose testing. There is good facility in the hands. No other abnormal involuntary movements are noted. Motor strength is 5/5 diffusely in the arms bilaterally including deltoids, biceps, triceps, brachioradialis, wrist flexors and extensors, industrial service technician, and intrinsic hand muscles. Motor strength is 5/5 diffusely in the legs bilaterally including hip flexors, quadriceps, hamstrings, gastrocnemius, tibialis anterior, tibialis posterior, and Peroneii muscles. Toe extensors are normal and there is good bulk in the extensor digitorum brevis muscles bilaterally. The limbs have good tone without rigidity or spasticity. There is no atrophy noted in the muscles. Muscle bulk is normal, there is no tenderness to palpation, no myotonia to percussion, and no fasciculations seen. Sensory examination is intact to touch and pin throughout all 4 limbs diffusely. Reflexes are 2/4 in the biceps, triceps, brachioradialis, quadriceps, and Achilles tendons bilaterally. There is no clonus bilaterally. Toes are downgoing with plantar stimulation bilaterally. Peripheral pulses are present and of normal quality distally in all 4 limbs. There is no peripheral edema noted in the limbs. Results & Data Vital Signs (Past 12 Hours) Vital Signs Temp Pulse Pulse Pulse Resp BP Pulse Ox 03/27/23 07:25 36.9 C 78 18 133/89 97 03/27/23 07:00 85 07/04/23 02:53 37.1 C 75 16 96/67 L 94 03/27/23 00:43 98 H 03/27/23 00:25 36.4 C L 91 H 16 134/84 95 03/26/23 21:06 77 16 123/73 96 O2 Del Method 03/27/23 07:25 Room Air 03/27/23 07:00 03/27/23 02:53 Room Air 03/27/23 00:43 03/27/23 00:25 Room Air 03/26/23 21:06 Room Air PG Care Time/CCT Total # of Minutes Spent Total Time Spent with Patient: Total time spent is greater than 50% in coordination of care (as documented) at patient's floor/unit and/or counseling patient: Coding Level of Care Code 03369 IN/OBS CONSULT LVL 5,80M Diagnoses Facial numbness R20.0 Dizziness R42 Chronic cerebral ischemia I67.82 Time Spent (min) 90
[2023-03-27] MEDS ORDERED: FLUoxetine HCL 20 MG CAP PO SCH (09:00)
[2023-03-27] MEDS ORDERED: PANTOprazole 40 MG TAB PO SCH (09:00)
--- NOTE | 2023-03-27 10:45 | Discharge Summary ---
Date of Service March 27, 2023 Admission HPI Per Admitting Provider 57yo Female with PMH hypothyroidism, GERD, depression here for dizziness facial numbness. Patient states she's been having ongoing dizziness with movement ongoing past 3 weeks, ears felt heavy, PCP had noted fluid in her ears tried meclizine steroids vestibular therapy which only partially helped however dizziness would persist. Today at 4pm she noted sudden onset numbness on bilateral face both cheeks and chin sparing her forehead. described brief tingling along her left arm that quickly resolved. Possible sluggishness. Denies any change in hearing vision speech breathing facial expression weakness. Cannot recall any inciting event. States the numbness quickly resolved, has some lingering rubberiness on her lips. This has never happened before. Denies fever nausea vomitting SOB. Patient has a family history heart disease grandma age 91, cancer mother age 72. Admission Exam Per Admitting Provider Constitutional:WD/WN, vitals as above Eyes:PERRL, conjunctivae normal, anicteric sclerae ENMT:external ear and nose normal, oropharynx normal Neck:trachea midline, no thyromegaly Respiratory:normal respiratory effort, lungs clear to auscultation Cardiovascular:Rate/Rhythm: regular rate and regular rhythm Extremities: no edema Skin:no rashes, warm and dry Neurologic:normal touch/pain/proprioception, CN's II-XI intact bilaterally and moves all extremities Principal Diagnosis Transient Facial Numbness Discharge Exam Constitutional afebrile, in no acute distress, AO x3 Eyes PERRLA Full ocular range of motion Respiratory CTA, No labored breathing Cardiovascular Regular rhythm and normal rate, S1 S2, no r/m/g Musculoskeletal 5/5 strength in all extremities Skin No apparent rashes. Warm and dry. Neurologic Normal Neurologic exam. CN II through XII intact b/l. No sensory disfunction. No motor disfunction. 2/2 reflexes in upper and lower extremities. Normal gait. No cerebellar dysfunction Psychiatric mood and affect appropriate. Good clinical insight. Discharge Data Allergies Allergy/AdvReac Type Severity Reaction Status Date / Time No Known Drug Allergies Allergy Unknown Verified 03/26/23 22:40 Consultations 03/26/23 21:28 ED Decision to Admit Stat 03/27/23 00:35 Consult Neurology Routine Ordered Studies 03/26/23 18:20 CT angio head w con Stat CT angio neck with con Stat CT head/brain wo con Stat 03/26/23 22:10 MRI Angio Brain [MR angio head wo con] Stat MRI Brain [MR brain wo con] Stat Hospital Course (1) Facial numbness: (2) Dizziness: (3) GERD (gastroesophageal reflux disease): (4) Hypothyroidism: Plan The patient presented with 3 weeks of dizziness and sudden onset bilateral facial numbness which was forehead sparing. BP within normal limits, CT normal, MRI showed no acute stroke. Lyme negative, anaplasmosis pending. Symptoms resolved and normal neuro exam. TSH was low at 0.55. Patient was determined to not have stroke, bleeding, or aneurysm. Synthroid was adjusted, recommended to follow up with PCP with a recheck of LFTs. Chronic conditions of GERD, hypothyroidism, and depression were managed with home medications while in the hospital. Total Time Total Time Spent Total Time Spent (In Minutes): Less than 30 Discharge Plan Discharge Items Patient Disposition: Home - Self-Care Reason For Visit: ANEURYSM Discharge Diagnosis: facial numbness Condition on Discharge: Fair Activity: Per Instructions section Non-emergency contact: Primary Care Provider Call non-emergency contact if: you have any medication questions and your symptoms worsen Follow-up/Referrals: Alden Rayo MD [Primary Care Provider] - Diet: Regular Ambulatory Orders: TSH with Reflex to FT4 (Routine) Timeframe: 6 Weeks Location: Determined by Patient Ordered By: Alix Bradley Attending Provider Instructions: You were admitted to the hospital for an episode of facial numbness associated with recent dizziness/lightheadedness. A CT and MRI of your head did not show any stroke, bleeds, or aneurysms. Your brain scans did show some age related vascular changes which is of no immediate concern. Your lyme test was also negative. A discharge summary will be sent to your primary care physician to ensure continuity of care. Please bring this discharge summary with you to your next office appointment so that your provider can review it at that time. Medications: Your medication list has been reviewed and reconciled upon discharge to ensure accuracy and continuity of care. An updated list of all your medications is included with your hospital discharge paperwork. Please review this list closely and make note of any changes to your medications. - Due to the vascular changes seen on your scan, at the recommendation of neurology, you should start taking a baby aspirin (81 mg) daily. - Your TSH (thyroid function lab) was low, meaning that the dose of your levothyroxine is too high. Your new dose is 150 mcg daily. This has been sent to your pharmacy. You should also have your TSH rechecked in about 6 weeks. This lab has been ordered and the results should go to your PCP, Dr. Rayo. Follow up appointments: - Make a follow up appointment with your PCP in about 6-8 weeks. It is very important that you follow up with them after discharge from the hospital. - Keep all of your follow up appointments as already scheduled. If you cannot make an appointment, notify your provider. CONTACT YOUR PRIMARY CARE PROVIDER if you experience any of the following: - Repeat episodes of facial numbness - Difficulty following your treatment plan - Difficulty taking any of your medications CALL 911 OR GO TO THE EMERGENCY DEPARTMENT if you experience any of the following: - Sudden, severe abdominal pain or nausea/vomiting - Severe chest pain or chest pain that radiates to your jaw or arm - Sudden, severe shortness of breath or difficulty breathing Pending Studies at Discharge: No Stand-Alone Forms: My [facility], Smoking Cessation Medications and DC Order Prescriptions: New levothyroxine [Synthroid] 150 mcg Tablet 150 mcg PO DAILYBB Qty: 30 2RF aspirin 81 mg capsule 81 mg PO DAILY Qty: 30 0RF Continued spironolactone [Aldactone] 50 mg tablet 50 mg PO DAILY Qty: 90 3RF fluoxetine [Prozac] 20 mg Capsule 20 mg PO QAM omeprazole magnesium [Prilosec OTC] 20 mg Tablet,Delayed Release (Dr/Ec) 40 mg PO QAM Mirena 21 mcg/24 hours (8 yrs) 52 mg Intrauterine Device 0 mcg INTRAUTERINE CONT calcium carbonate 600 mg calcium (1,500 mg) Tablet 600 mg PO DAILY fluticasone propionate [Flonase Allergy Relief] 50 mcg/actuation [place],Suspension 2 spray INTRANASAL DAILY Rx Instructions: administer into each nostril cyanocobalamin (vitamin B-12) [Vitamin B-12] 100 mcg Tablet 100 mcg PO QAM apple cider vinegar 500 mg Tablet 500 mg PO QAM cinnamon bark [Cinnamon] 500 mg Capsule 500 mg PO QAM cholecalciferol (vitamin D3) [Vitamin D3] 50 mcg (2,000 unit) Tablet 50 mcg PO QAM fexofenadine 60 mg Tablet 60 mg PO BID PRN (Reason: Allergy Symptoms) Discontinued levothyroxine 175 mcg tablet 175 mcg PO DAILYBB Discharge Orders: Discharge Order (Routine); Ordered 03/27/23 Ordered By: Alix Culp/Other Patient Handouts: Loss of Sensation: Safety Tips, Vertigo Disequilibrium Syncope, Dizziness Fainting Causes Admission Data Admit Date/Time: 03/26/23 22:15 Attending Provider: Sadi Beasley Admit Provider: Janis Wesley Primary Care Provider: Alden Rayo Other Providers: Zaid Tran ; Carlos Carbone Other Interventions: Discharge Summary Assessment (RN) Last Done: 03/27/23 11:02 Supervising Physician Co-Signing Physician Notes I personally examined the patient and verified all pham points of history and exam, discussed case, and agree with decision making with Dr Snyder Feeling better and would like to go home. Neurology input greatly appreciated. Radiology review review of films greatly appreciated. Symptoms have all resolved. Vitals noted, in general she is awake and alert pleasant no distress. HEENT normocephalic atraumatic mucous membranes moist. Breathing unlabored no accessory muscle use good effort. Skin shows no rashes no pallor or icterus. Neuro without focal deficits. Facial numbnessnonspecific, but I favor an amalgamation side effect of her recent vertigo, steroid course, iatrogenic mild hyperthyroidism, and the stress that all of the above would cause this. Fortunately nothing about this appears to be central neurologic, also fortunately her incidental finding of a questionable aneurysm proved to not be the case after extensive review by neurology and radiology. Safe/stable for home, slightly lower dose of Synthroid, repeat thyroid function tests in about a month. Outpatient follow-up
--- NOTE | 2023-03-27 12:48 | Billing Data ---
Date of Service March 27, 2023 Coding Level of Care Code 40118 IN/OBS DISCH 30 MIN/LESS
--- NOTE | 2023-03-27 19:00 | Billing Data ---
Date of Service March 27, 2023 Coding Level of Care Code 86443 INT INP/OBS CARE
--- NOTE | 2023-03-29 21:49 | Electrocardiogram Report ---
Test Reason : Blood Pressure : / mmHG Vent. Rate : 071 BPM Atrial Rate : 071 BPM P-R Int : 170 ms QRS Dur : 062 ms QT Int : 344 ms P-R-T Axes : 017 038 046 degrees QTc Int : 373 ms Normal sinus rhythm Nonspecific ST abnormality Abnormal ECG When compared with ECG of 19-MAY-2022 15:26, T wave amplitude has increased in Lateral leads QT has shortened Confirmed by Daniel Frederick ([id number]) on 03/29/2023 9:49:09 PM Referred By: REFERRED SELF Confirmed By:Daniel Frederick
== END 2023-03-27 12:39 | disposition home or self-care (01) ==
LOC: ED 18:08 → 2N 18:08 → SUATTDRO 22:15 → 2N 23:47